=== PATIENT | male | born 1995 | race Caucasian/White ===

== ENCOUNTER 2018-03-28 09:15 | Emergency (ER) | payer OTHER ==
[~2018-03-28] VITALS: Ht 167.6 cm; Wt 63.5 kg
[2018-03-28] MEDS ORDERED: VENTOLIN HFA18 GM INH (09:24)
== END 2018-03-28 10:46 | disposition home or self-care (01) ==
LOC: ED 09:15
DX: S05.12XA Contusion of eyeball and orbital tissues, left eye, initial encounter (principal); Y04.0XXA Assault by unarmed brawl or fight, initial encounter
CPT/HCPCS: 99282